=== PATIENT | female | born 1980 | race Hispanic/Latino ===

== ENCOUNTER 2017-10-19 12:28 | Emergency (ER) | payer OTHER ==
[2017-10-19] MEDS: DERMABOND TOPICAL SKIN ADHESIVE TOP (14:15)
[2017-10-19] MEDS: ADACEL/BOOSTRIX VACCINE (DIPHTH/PERTUSS/ACELL/TETANUS)0.5ML SYR (90715) IM (14:19)
== END 2017-10-19 15:02 | disposition home or self-care (01) ==
LOC: M ED 12:28
DX: S61.012A Laceration without foreign body of left thumb without damage to nail, initial encounter (principal); W26.0XXA Contact with knife, initial encounter; Y92.099 Unspecified place in other non-institutional residence as the place of occurrence of the external cause; Y93.9 Activity, unspecified
CPT/HCPCS: 90715

== ENCOUNTER 2021-03-03 18:25 | Emergency (ER) | payer OTHER ==
[~2021-03-03] VITALS: Ht 144.8 cm; Wt 50.7 kg
[~2021-03-03 18:25] MED LIST: KEFL500C17 PO
[2021-03-03 20:52] LABS: BASO # 0.1 10^3/uL (0.0-0.2); BASO % 0.5 % (0.0-1.0); EOS % 0.4 % (0.0-3.0); HEMATOCRIT 36.9 % (36.0-47.0); HEMOGLOBIN 12.1 g/dl (12.0-15.5); LYMPH % 32.4 % (24.0-44.0); MEAN CORPUSCULAR HEMOGLOBIN 29.2 pg (27.0-33.0); MEAN CORPUSCULAR HGB CONC 32.8 g/dl (32.0-36.5); MEAN CORPUSCULAR VOLUME 88.9 fl (80.0-96.0); MONO # 0.9 10^3/uL (0.0-0.8); NEUTROPHILS # 5.2 10^3/uL (1.5-8.5); NEUTROPHILS % 56.6 % (36.0-66.0); PLATELET COUNT, AUTOMATED 335 10^3/uL (150-450); RED BLOOD COUNT 4.15 10^6/uL (4.00-5.40); WHITE BLOOD COUNT 9.3 10^3/uL (4.0-10.0)
[2021-03-03 21:40] LABS: ALBUMIN 3.8 GM/DL (3.2-5.2); ALT/SGPT 19 U/L (12-78); BILIRUBIN,DIRECT 0.1 MG/DL (0.0-0.2); BILIRUBIN,TOTAL 0.3 MG/DL (0.2-1.0); BLOOD UREA NITROGEN 14 MG/DL (7-18); CALCIUM LEVEL 9.4 MG/DL (8.5-10.1); CARBON DIOXIDE LEVEL 27 MEQ/L (21-32); CHLORIDE LEVEL 111 MEQ/L (98-107); CK-MB VALUE MASS < 1.0 NG/ML (<3.6); CPK CREATINE PHOSPHOKINASE 123 U/L (26-192); CREATININE FOR GFR 0.57 MG/DL (0.55-1.30); GLOMERULAR FILTRATION RATE > 60.0 (>58); GLUCOSE, FASTING 88 MG/DL (70-100); MB/CK RELATIVE INDEX 0.81 (< OR =4); POTASSIUM SERUM 4.1 MEQ/L (3.5-5.1); SODIUM LEVEL 143 MEQ/L (136-145); TOTAL PROTEIN 7.3 GM/DL (6.4-8.2); TROPONIN I < 0.02 NG/ML (< 0.10)
[2021-03-03] MEDS ORDERED: EQL50CAP4 PO (22:27)
--- NOTE | 2021-03-03 23:49 | REPVR ---
PROCEDURE INFORMATION: Exam: XR Chest Exam date and time: 03/03/2021 10:33 PM Age: 40 years old Clinical indication: Cough and dyspnea; Additional info: Dyspnea/cough TECHNIQUE: Imaging protocol: XR of the chest. Views: 1 view. COMPARISON: No relevant prior studies available. FINDINGS: Lungs: Unremarkable. No consolidation. Pleural spaces: Unremarkable. No pleural effusion. No pneumothorax. Heart/Mediastinum: Unremarkable. No cardiomegaly. Bones/joints: Unremarkable. IMPRESSION: No acute findings. Electronically signed by: Anson Ramirez On 03/03/2021 23:48:36 PM
[2021-03-04] MEDS ORDERED: IPRATROPIUM 0.5MG/ALBUTEROL 2.5MG INH SOL UD 3ML (DUONEB) NEB ONE
[2021-03-04] MEDS ORDERED: PROAAER10 INH (01:58)
[2021-03-04 02:00] VITALS: BP 103/59
--- NOTE | 2021-03-04 07:57 | ECGEPIP ---
[facility] - ED Test Date: 2021-03-03 Pat Name: STEVIE CORADO Department: Room: - Gender: Female [employer] Planter: JAMIE : 1980 Requested By: DARRIN ROSADO Order Number: [id number] Reading MD: Darrin Mckeon Measurements Intervals Ethel Rate: 62 P: 47 AK: 150 QRS: 35 QRSD: 84 T: 37 QT: 408 QTc: 414 Interpretive Statements Normal sinus rhythm Comparison tracing not on file Electronically Signed on 03-04-2021 7:56:44 EDT by Darrin Mckeon
== END 2021-03-04 02:13 | disposition home or self-care (01) ==
LOC: M ED 18:25
DX: J45.909 Unspecified asthma, uncomplicated (principal)